=== PATIENT | male | born 1980 | race Hispanic/Latino ===

== ENCOUNTER 2020-04-11 18:40 | Emergency (ER) | payer SELFPAY ==
[~2020-04-11] VITALS: Ht 160 cm; Wt 117.9 kg
--- NOTE | 2020-04-11 19:42 | Emergency Department Note ---
History of Present Illnes History of Present Illness Chief Complaint: COVID PUI History of Present Illness This is a 40 year old male, with no significant past medical history who tested positive for Covid on 04/04/20. Patient was tested, because a family member that he had recently been exposed to, tested positive for Covid. Patient was asymptomatic at the time of testing. Yesterday, patient began to have body aches, specifically involving his shoulders and back, and today he began to cough and have subjective fever. He denies any chest pain, shortness of breath, nausea, vomiting, diarrhea, frequency, urgency, or dysuria. There are 9 family members living in patient's home, and 7 a benign are currently positive for Covid. Patient took some ibuprofen several hours prior to arrival, for fever and body aches. Historian: Patient Arrival Mode: Car Transportation Department Head Required: No Onset (how long ago): day(s) (1) Location: generalized Quality: body aches Radiation: Reports non-radiation Severity: moderate Onset quality: sudden Duration (how long): day(s) (1) Timing of current episode: constant Progression: waxing and waning Chronicity: new Context: Denies recent travel, Denies trauma/injury Relieving factors: none Exacerbating factors: none Associated symptoms: Reports cough (dry), Reports fever/chills; Denies chest pain, Denies headaches, Denies loss of appetite, Denies nausea/vomiting, Denies shortness of breath Treatments prior to arrival: NSAID Risk factors: Living with mutliple family members who are COVID positive Past Medical/Family History Physician Review I have reviewed the patient's past medical and family history. Any updates have been documented here. Past Medical History Recent Fever: Yes Clinical Suspicion of Infectio: Yes New/Unexplained Change in Ment: No Past Medical History: None Other Surgery: RT ACL REPAIR Social History Smoking Cessation: Never Smoker Counseling Performed: No Alcohol Use: None Any Illegal Drug Use: No TB Exposure/Symptoms: No Physically hurt or threatened: No Family History Family history of heart diseas: No Other Any Pre-Existing Lines (PICC,: No Is patient up to date on immun: No Review of Systems Review of Systems Constitutional: Reports chills, Reports fever, Reports malaise EENTM: Denies no symptoms Cardiovascular: Denies chest pain, Denies edema, Denies palpitations Respiratory: Reports cough; Denies excessive phlegm production, Denies pain with cough, Denies dyspnea, Denies dyspnea on exertion Gastrointestinal: Denies abdominal pain, Denies diarrhea, Denies nausea, Denies vomiting Genitourinary: Denies dysuria, Denies frequency Musculoskeletal: Reports back pain, Reports muscle pain (myalgia); Denies joint pain, Denies joint swelling Integumentary: Denies rash Neurological: Denies headache, Denies tingling Psychological: Reports no symptoms Physical Exam Related Data Allergies: Coded Allergies: No Known Allergies (Unverified , 04/11/20) Triage Vital Signs Vital Signs Date Time Temp Pulse Resp B/P (MAP) Pulse Ox O2 Delivery O2 Flow Rate FiO2 04/11/20 19:05 100.0 88 22 124/76 99 Room Air Physical Exam CONSTITUTIONAL Constitutional: Present well-developed, Present well-nourished, Present morbidl y obese; Absent distressed, Absent ill appearing HENT HENT: Present normocephalic, Present atraumatic, Present oropharynx clear/moist, Present nose normal; Absent nasal congestion, Absent rhinorrhea, Absent oropharyngeal exudate, Absent tonsillar excudate HENT L/R: Present left ext ear normal, Present right ext ear normal EYES Eyes: Reports PERRL, Reports conjunctivae normal NECK Neck: Present ROM normal, Present supple; Absent cervical adenopathy PULMONARY Pulmonary: Present effort normal, Present breath sounds normal CARDIOVASCULAR Cardiovascular: Present regular rhythm, Present heart sounds normal, Present capillary refill normal, Present normal rate GASTROINTESTINAL Abdominal: Present soft, Present nontender, Present bowel sounds normal; Absent tender GENITOURINARY Genitourinary: Present exam deferred SKIN Skin: Present warm, Present dry; Absent rash MUSCULOSKELETAL Musculoskeletal: Present ROM normal; Absent edema NEUROLOGICAL Neurological: Present alert, Present oriented x 3, Present no gross motor or sensory deficits PSYCHOLOGICAL Psychological: Present mood/affect normal, Present judgement normal Results Imaging Imaging results reviewed: Yes Impressions [place] [address] Patient Name: BOSTON GANT MR #: [id number] : 1980 Age/Sex: 40/M Req #: [id number] Adm Physician: Ordered by: AYUSH ALEXANDRE MD Report #: [id number] Location: [facility] Room/Bed: Procedure: [id number] HOPD/CXR 2 VIEW - HOPD Exam Date: Exam Time: REPORT STATUS: Signed EXAMINATION: CXR 2 VIEW - HOPD INDICATION: ^cough, COVID positive COMPARISON: None FINDINGS: TUBES and LINES: None. LUNGS: There is diffuse interstitial and patchy airspace opacities throughout both lungs. PLEURA: No pleural effusion or pneumothorax. HEART AND MEDIASTINUM: The cardiomediastinal silhouette is unremarkable. BONES AND SOFT TISSUES: No acute osseous lesion. Soft tissues are unremarkable. UPPER ABDOMEN: No free air under the diaphragm. IMPRESSION: Diffuse interstitial and patchy airspace opacities throughout both lungs, most compatible with multifocal pneumonia, likely viral. Signed by: Ella Rice MD on 04/11/2020 8:16 PM Dictated By: ELLA RICE MD 15 Transcribed By: SANDEEP on 04/11/202015 COPY TO: AYUSH ALEXANDRE MD~ Assessment & Plan Medical Decision Making MDM - Drink plenty of water, at least 816 ounce bottles per day, or more if you're having a high fever. - Recommended for fever or body aches, that you alternate ibuprofen 200 mg3 tablets every 6 hours, alternated with extra strength Tylenol 500 mg2 tablets every 4-6 hours as needed. - Take medications as directed. Continue to self quarantine until you are completely asymptomatic (no fever, cough, body aches, etc.) for at least 5 days. - For the cough, you may take Mucinex or Delsym cough syrup [id number]. You may also try 1 teaspoon of Honey, as needed, which is actually very effective for the cough. - Avoid laying on your back, if you are coughing, as this can make it harder to breathe. It is best to sit up or rotate laying on different sides, or your stomach. - Return to the emergency room if you become significantly short of breath, or develop chest pain. Assessment & Plan Final Impression: (1) Pneumonia due to COVID-19 virus (2) COVID-19 (3) Cough in adult Depart Disposition: HOME, SELF-CARE Last Vital Signs Date Time Temp Pulse Resp B/P (MAP) Pulse Ox O2 Delivery O2 Flow Rate FiO2 04/11/20 19:05 100.0 88 22 124/76 99 Room Air Home Meds Active Scripts Albuterol Sulf* (PROAIR HFA INHALER*) 8.5 Gm Inh, 2 INH INH Q4HR, #1 INH 0 Refills Prov:AYUSH ALEXANDRE MD 04/11/20 Dexamethasone (Decadron) 6 Mg Tablet, 1 TAB PO DAILY for inflammation of lungs for 10 Days, #10 TAB 0 Refills Prov:AYUSH ALEXANDRE MD 04/11/20 Azithromycin (ZITHROMAX) 250 Mg Tablet, 2 TAB PO DAILY for infection for 5 Days, #6 TAB 0 Refills 2 po today, then 1 po daily x 4 days. Complete 5 day course for infection. Prov:AYUSH ALEXANDRE MD 04/11/20 AYUSH ALEXANDRE MD Apr 11, 2020 19:42
--- NOTE | 2020-04-11 20:19 | Diagnostic Imaging Report ---
EXAMINATION: CXR 2 VIEW - HOPD INDICATION: ^cough, COVID positive COMPARISON: None FINDINGS: TUBES and LINES: None. LUNGS: There is diffuse interstitial and patchy airspace opacities throughout both lungs. PLEURA: No pleural effusion or pneumothorax. HEART AND MEDIASTINUM: The cardiomediastinal silhouette is unremarkable. BONES AND SOFT TISSUES: No acute osseous lesion. Soft tissues are unremarkable. UPPER ABDOMEN: No free air under the diaphragm. IMPRESSION: Diffuse interstitial and patchy airspace opacities throughout both lungs, most compatible with multifocal pneumonia, likely viral. Signed by: Ethan Archuleta MD on 04/11/2020 8:16 PM
[2020-04-11] MEDS ORDERED: ACETAMINOPHEN 325 MG TAB PO ONE (20:30)
[2020-04-11] MEDS ORDERED: AZITHROMYCIN 250 MG TAB PO ONE (20:30)
[2020-04-11] MEDS ORDERED: DEXAMETHASONE 4 MG TAB PO SCH (20:30)
[2020-04-11] MEDS ORDERED: CIPROFLOXACIN 500 MG TAB ONE (20:33)
[2020-04-11] MEDS ORDERED: DEXAMETHASONE SOD PHOS INJ 4 MG/ML VIAL ONE (20:33)
[2020-04-11] MEDS ORDERED: ACETAMINOPHEN 325 MG TAB ONE (20:34)
[2020-04-11] MEDS ORDERED: AZITHROMYCIN 250 MG TAB ONE (20:40)
[2020-04-11] MEDS ORDERED: ZITHROMAX250 MG PO (21:17)
[2020-04-11] MEDS ORDERED: DECADRON6 MG PO (21:22)
[2020-04-11] MEDS ORDERED: PROAIR HFA INH8.5 GM INH (21:24)
--- OUTSIDE RECORDS SUMMARY | 2020-04-11 21:24 | XMS REPORT | Continuity of Care Document ---
Author Author 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 Allergies, Adverse Reactions, Alerts This patient has no known allergies or adverse reactions. Medications This patient has no known medications. Procedures This patient has no known procedures. Results Test Description Test Time Test Comments Results Result Comments Source CXR 2 VIEW - HOPD 2020-04-11 20:14:00 [facility] 1980 Sex: M [place] [id number] Patient Name: BOSTON GANT MR #: [id number] : 1980 Age/Sex: 40/M Req #: [id number] [facility] Physician: Ordered by: AYUSH ALEXANDRE MD Report #: [id number] Location: [facility] Room/Bed: Procedure: [id number] HOPD/CXR 2 VIEW - HOPD Exam Date: Exam Time: REPORT STATUS: Signed EXAMINATION: CXR 2 VIEW - HOPD INDICATION: cough, COVID positive COMPARISON: None FINDINGS: TUBES and LINES: None. LUNGS: There is diffuse interstitial and patchy airspace opacities throughout both lungs. PLEURA: No pleural effusion or pneumothorax. HEART AND MEDIASTINUM: The cardiomediastinal silhouette is unremarkable. BONES AND SOFT TISSUES: No acute osseous lesion. Soft tissues are unremarkable. UPPER ABDOMEN: No free air under the diaphragm. IMPRESSION: Diffuse interstitial and patchy airspace opacities throughout both lungs, most compatible with multifocal pneumonia, likely viral. Signed by: Ella Rice MD on 04/11/2020 8:16 PM Dictated By: ELLA RICE MD 15 Transcribed By: SANDEEP on 04/11/202015 COPY TO: AYUSH ALEXANDRE MD
[2020-04-11 22:38] VITALS: BP 132/74
== END 2020-04-11 21:45 | disposition home or self-care (01) ==
LOC: FSED 19:00
DX: U07.1 COVID-19 (principal); J18.9 Pneumonia, unspecified organism; R05 Cough
CPT/HCPCS: 71046; 99283; J1100

== ENCOUNTER 2020-04-23 08:35 | Emergency (ER) | payer SELFPAY ==
[~2020-04-23] VITALS: Ht 160 cm; Wt 118.4 kg
[~2020-04-23 08:35] MED LIST: DECADRON6 MG PO; PROAIR HFA INH8.5 GM INH; ZITHROMAX250 MG PO
[2020-04-23 09:53] VITALS: BP 125/84
[2020-04-23] MEDS ORDERED: PREDNISONE10 MG PO (10:28)
== END 2020-04-23 10:33 | disposition home or self-care (01) ==
LOC: FSED 09:00
DX: M54.12 Radiculopathy, cervical region (principal); M79.621 Pain in right upper arm; F17.210 Nicotine dependence, cigarettes, uncomplicated
CPT/HCPCS: 70450; 72125; 99283

== ENCOUNTER 2021-10-01 19:42 | Emergency (ER) | payer OTHER ==
[~2021-10-01] VITALS: Ht 160 cm; Wt 113.4 kg
[~2021-10-01 19:42] MED LIST changes: +PREDNISONE10 MG PO
[2021-10-01] MEDS ORDERED: PIPERACILLIN/TAZOBACTAM 3.375 GM VIAL ONE (20:53)
[2021-10-01] MEDS ORDERED: CLEOCIN HCL300 MG PO (21:32)
[2021-10-01] MEDS ORDERED: AUGMENTIN 500-1 EACH PO (21:32)
== END 2021-10-01 22:08 | disposition home or self-care (01) ==
LOC: FSED 20:30
DX: L02.211 Cutaneous abscess of abdominal wall (principal); R73.03 Prediabetes; Z86.16 Personal history of COVID-19; F17.210 Nicotine dependence, cigarettes, uncomplicated
CPT/HCPCS: 10060; 80053; 85025; 99283; J2543